=== PATIENT | female | born 2000 ===

== ENCOUNTER 2019-07-09 20:22 | Outpatient (REF) | payer MEDICAID, SELFPAY ==
[2019-07-13 11:52] LABS: HIV-1/2 Ag & Ab Screen Negative (Negative)
[2019-07-14 09:10] LABS: GC Result Negative (Negative)
[2019-07-14 10:06] LABS: Chlamydia Result Positive (Negative)
== END 2019-07-09 20:42 ==
LOC: NCHCN 20:22
PROVIDERS: PCP Family Medicine; Visit Provider Registered Nurse
DX: Z11.4 Encounter for screening for human immunodeficiency virus [HIV] (principal); Z11.3 Encounter for screening for infections with a predominantly sexual mode of transmission
CPT/HCPCS: 87389; 87491; 87591

== ENCOUNTER 2019-08-21 15:52 | Outpatient (REF) | payer MEDICAID, SELFPAY ==
[2019-08-21 21:53] LABS: TSH (W/Ref FT4) 1.78 uIU/mL (0.36-3.74)
== END 2019-08-21 16:12 ==
LOC: NCHCN 15:52
PROVIDERS: PCP Family Medicine; Visit Provider Registered Nurse
DX: E03.9 Hypothyroidism, unspecified (principal)
CPT/HCPCS: 84443

== ENCOUNTER 2019-09-24 09:26 | Outpatient (REF) | payer MEDICAID, SELFPAY ==
--- NOTE | 2019-09-24 08:00 | PAPFT_PTH ---
PATIENT: ARDEN HERNANDEZ LOC: [facility] U#:[id number] AGE/SX: 19/F ROOM: RE09/24/[address]: Aliza Saleh : 2000 BED: DIS: 09/24/2019 SPEC #: [id number] RECD: 09/25/19 13:14 STATUS: BRITTNEY RELui #: [id number] ROBERT: 09/24/19 08:[address]: Aliza Saleh DEPT: [facility] Cytology RECD BY: Shaylee Vila ENTERED: 09/25/19 13:14 SP TYPE: PAPFT OTHR DR: Audrey Almanza Tissues: 1 - CX/ENDOCX FOR PAP SMEARS Procedures: PAP THIN PREP/[facility] Screening Comments: [id number] (CHLAMYDIA/GC)
[2019-09-28 17:54] LABS: Chlamydia Result Negative (Negative); GC Result Negative (Negative)
== END 2019-09-24 09:46 ==
LOC: NCHCN 09:26
PROVIDERS: PCP Family Medicine; Visit Provider Registered Nurse
DX: Z11.3 Encounter for screening for infections with a predominantly sexual mode of transmission (principal); Z12.4 Encounter for screening for malignant neoplasm of cervix
CPT/HCPCS: 87491; 87591; 88142